=== PATIENT | female | born 1940 | race Caucasian/White ===

== ENCOUNTER 2017-12-07 23:09 | Emergency (ER) | payer MEDICARE, MEDICAID ==
[~2017-12-07] VITALS: Ht 162.6 cm; Wt 62.0 kg
[~2017-12-07 23:09] MED LIST: ASPI-1182 PO; ATOR20TA86 PO; CARV6 PO; DSS100 PO; FOLI1TAB15 PO; OLAN10TA6 PO; OMEP20 PO; OXYB5XL PO; THERAGRAN M1 TA1 PO
[2017-12-08 01:04] LABS: APPEARANCE,URINE CLOUDY (CLEAR); BILIRUBIN,URINE NEGATIVE (NEGATIVE); GLUCOSE, URINE (UA) NEGATIVE (NEGATIVE); KETONES,URINE NEGATIVE (NEGATIVE); LEUKOCYTE ESTERASE ,URINE LARGE (NEGATIVE); NITRATE,URINE POSITIVE (NEGATIVE); OCCULT BLOOD,URINE SMALL (NEGATIVE); PROTEIN,URINE POS 1+ (NEGATIVE); UROBILINOGEN,URINE 0.2 mg/dL (<=1.0)
[2017-12-08 01:07] LABS: AMPHET/METH SCREEN,URINE NEGATIVE (NEGATIVE); BARBITURATE SCREEN, URINE NEGATIVE (NEGATIVE); BENZODIAZEPINES SCREEN,URINE NEGATIVE (NEGATIVE); CANNABINOID SCREEN,URINE NEGATIVE (NEGATIVE); COCAINE SCREEN,URINE NEGATIVE (NEGATIVE); METHADONE SCREEN, URINE NEGATIVE (NEGATIVE); OPIATE SCREEN,URINE NEGATIVE (NEGATIVE); PHENCYCLIDINE SCREEN,URINE NEGATIVE (NEGATIVE)
[2017-12-08 01:17] LABS: BACTERIA,URINE Few /HPF (None Seen); YEAST,URINE Rare /HPF (None Seen)
[2017-12-08 01:18] LABS: WBC,URINE 51-100 /HPF (0-5)
[2017-12-08 01:26] LABS: BASOPHILS % (AUTO) 0.2 % (0.0-2.0); EOSINOPHILS % (AUTO) 0.8 % (1.0-6.0); HEMATOCRIT 37.8 % (36-46); HEMOGLOBIN 12.7 g/dL (12.0-16.0); LYMPHOCYTES # (AUTO) 1.7 K/uL (1.0-4.8); LYMPHOCYTES % (AUTO) 20.7 % (22.0-44.0); MEAN CORPUSCULAR HEMOGLOBIN 31.8 pg (26.0-34.0); MEAN CORPUSCULAR HGB CONC 33.6 G/dL (31.0-37.0); MEAN CORPUSCULAR VOLUME 95 fL (80-100); MONOCYTES # (AUTO) 0.5 K/uL (0.1-1.0); MONOCYTES % (AUTO) 6.4 % (2.0-9.0); NEUTROPHILS % (AUTO) 71.9 % (40.0-70.0); PLATELET COUNT (AUTO) 138 K/uL (150-450); RED BLOOD CELL COUNT(AUTO) 3.98 MIL/uL (4.00-5.20); RED CELL DISTRIBUTION WIDTH 13.9 % (11.5-14.5)
[2017-12-08 01:34] LABS: ANION GAP 6 mmol/L (8-16); CALCIUM, TOTAL 10.6 mg/dL (8.8-10.5); CARBON DIOXIDE 30 mmol/L (22-29); CHLORIDE 105 mmol/L (98-107); CREATININE 0.63 mg/dL (0.60-1.30); GLOMERULAR FILTR. RATE CALC > 60 mL/min (>60); GLUCOSE,RANDOM 135 mg/dL (70-110); POTASSIUM 3.8 mmol/L (3.5-5.1); SODIUM SERUM 141 mmol/L (136-145); UREA NITROGEN, BLOOD 21 mg/dL (7-18)
[2017-12-08 01:35] LABS: INR 1.1 (0.9-1.1); PROTHROMBIN TIME 11.5 SEC (9.4-11.6)
[2017-12-08 01:40] LABS: ALANINE AMINOTRANSFERASE 13 U/L (12-78); ALBUMIN 2.8 g/dL (3.4-5.0); ALKALINE PHOSPHATASE 65 U/L (46-116); ASPARTATE AMINOTRANSFERASE 13 U/L (15-37); BILIRUBIN,TOTAL 0.2 mg/dL (0.1-1.0); CREATINE KINASE, TOTAL 17 U/L (26-192); TOTAL PROTEIN, SERUM 7.6 g/dL (6.4-8.2)
[2017-12-08 01:42] LABS: AMMONIA 49 umol/L (11-32)
[2017-12-08 01:44] LABS: TROPONIN I < 0.02 ng/mL (0.00-0.05)
[2017-12-08] MEDS ORDERED: CIPROFLOXACIN HCL 250 MG TABLET PO ONE (04:00)
[2017-12-08 04:34] VITALS: BP 161/89
== END 2017-12-08 04:55 | disposition home or self-care (01) ==
LOC: EMS 23:11
DX: M54.5 Low back pain (principal); N39.0 Urinary tract infection, site not specified; F03.90 Unspecified dementia, unspecified severity, without behavioral disturbance, psychotic disturbance, mood disturbance, and anxiety; J44.9 Chronic obstructive pulmonary disease, unspecified; I10 Essential (primary) hypertension; E11.9 Type 2 diabetes mellitus without complications; M19.90 Unspecified osteoarthritis, unspecified site; M81.0 Age-related osteoporosis without current pathological fracture; M32.9 Systemic lupus erythematosus, unspecified; M79.7 Fibromyalgia; W18.30XA Fall on same level, unspecified, initial encounter; Y93.89 Activity, other specified; Y92.89 Other specified places as the place of occurrence of the external cause; Y99.8 Other external cause status
CPT/HCPCS: 51702; 70450; 72125; 72128; 72131; 87086; 93005; 99285

== ENCOUNTER 2019-01-30 18:51 | Emergency (ER) | payer MEDICARE, MEDICAID ==
[~2019-01-30] VITALS: Ht 165.1 cm; Wt 70.5 kg
[~2019-01-30 18:51] MED LIST changes: +AMLO2.5T4 PO; +ASCO500 PO; +AUD NEB; +BENA20 PO; +CARV3 PO; -CARV6 PO; +CEFO2I IM; +CYAN1TAB44 PO; +DIVA-78 PO; +FERR-89 PO; +HEPA500041 SQ; +MV-M1TAB20 PO; -OLAN10TA6 PO; +OMEG-112 PO; +PANT40TA25 PO; +QUET25TA PO; +TRAZ-220 PO; +VITA1TAB22 PO
[2019-01-30 18:59] VITALS: BP 114/67
[2019-01-30 19:04] LABS: GLUCOSE,POINT OF CARE 141 MG/DL (70-110)
[2019-01-30] MEDS ORDERED: KETOROLAC TROMETHAMINE 10 MG TABLET PO ONE (20:00)
== END 2019-01-30 22:58 | disposition home or self-care (01) ==
LOC: EMS 18:52
DX: S93.402A Sprain of unspecified ligament of left ankle, initial encounter (principal); S93.602A Unspecified sprain of left foot, initial encounter; I10 Essential (primary) hypertension; E11.9 Type 2 diabetes mellitus without complications; J44.9 Chronic obstructive pulmonary disease, unspecified; Z88.2 Allergy status to sulfonamides; Z88.5 Allergy status to narcotic agent; Z88.8 Allergy status to other drugs, medicaments and biological substances; Z91.018 Allergy to other foods; Z79.899 Other long term (current) drug therapy; W18.39XA Other fall on same level, initial encounter; Y93.89 Activity, other specified; Y92.89 Other specified places as the place of occurrence of the external cause; Y99.8 Other external cause status

== ENCOUNTER 2019-07-01 13:30 | Emergency (ER) | payer MEDICARE, MEDICAID ==
[~2019-07-01] VITALS: Ht 165.1 cm; Wt 59.1 kg
[~2019-07-01 13:30] MED LIST changes: -BENA20 PO; +BENA20TA11 PO; -HEPA500041 SQ; -TRAZ-220 PO
[2019-07-01] MEDS ORDERED: HYDR-2924 PO (14:19)
[2019-07-01] MEDS ORDERED: ESCI10TA PO (14:19)
[2019-07-01] MEDS ORDERED: GABA-531 PO (14:19)
[2019-07-01] MEDS ORDERED: ICOS0.5C PO (14:19)
[2019-07-01 19:15] VITALS: BP 151/75
== END 2019-07-01 19:34 | disposition home or self-care (01) ==
LOC: EMS 13:33
DX: S09.90XA Unspecified injury of head, initial encounter (principal); M25.521 Pain in right elbow; F31.9 Bipolar disorder, unspecified; E11.9 Type 2 diabetes mellitus without complications; J44.9 Chronic obstructive pulmonary disease, unspecified; I10 Essential (primary) hypertension; F20.9 Schizophrenia, unspecified; Z88.1 Allergy status to other antibiotic agents; Z88.5 Allergy status to narcotic agent; Z88.8 Allergy status to other drugs, medicaments and biological substances; Z91.018 Allergy to other foods; Z79.82 Long term (current) use of aspirin; W19.XXXA Unspecified fall, initial encounter; Y93.89 Activity, other specified; Y92.89 Other specified places as the place of occurrence of the external cause; Y99.8 Other external cause status
CPT/HCPCS: 70450; 72125; 72170

== ENCOUNTER 2021-08-23 17:57 | Emergency (ER) | payer MEDICARE, MEDICAID ==
[~2021-08-23] VITALS: Ht 165.1 cm; Wt 59.1 kg
[~2021-08-23 17:57] MED LIST changes: -AMLO2.5T4 PO; +AMLO2.5T96 PO; -ASCO500 PO; -ASPI-1182 PO; +ASPI-1444 PO; -AUD NEB; -BENA20TA11 PO; -CARV3 PO; -CEFO2I IM; -CYAN1TAB44 PO; +DIVA-112 PO; -DIVA-78 PO; +ESCI-8 PO; +GABA-1181 PO; +HYDR50TA36 PO; +ICOS0.5C PO; +OXYB-34 PO; -OXYB5XL PO; -PANT40TA25 PO
[2021-08-23] MEDS ORDERED: HydrOXYzine PAMOATE 50 MG CAPSULE PO ONE (20:30)
[2021-08-23] MEDS ORDERED: PB/HYOSCY/ATR/SCOP/LIDO/MAALOX 55 ML BOTTLE PO ONE (20:30)
[2021-08-23 21:00] VITALS: BP 120/62
== END 2021-08-23 23:40 | disposition home or self-care (01) ==
LOC: EMS 17:57
DX: R10.13 Epigastric pain (principal); L29.9 Pruritus, unspecified; F25.9 Schizoaffective disorder, unspecified; I10 Essential (primary) hypertension; E11.9 Type 2 diabetes mellitus without complications; J44.9 Chronic obstructive pulmonary disease, unspecified; F31.9 Bipolar disorder, unspecified; Z88.1 Allergy status to other antibiotic agents; Z88.5 Allergy status to narcotic agent; Z88.2 Allergy status to sulfonamides; Z88.8 Allergy status to other drugs, medicaments and biological substances; Z79.899 Other long term (current) drug therapy
CPT/HCPCS: 99283